=== PATIENT | male | born 1970 | race Caucasian/White ===

== ENCOUNTER 2024-04-21 17:08 | Emergency (ER) | payer SELFPAY ==
[2024-04-21] MEDS: Ibuprofen 600 MG Tab PO ONE (18:06)
== END 2024-04-21 20:05 | disposition home or self-care (01) ==
LOC: MW.ED 17:08
DX: J10.1 Influenza due to other identified influenza virus with other respiratory manifestations (principal); Z79.899 Other long term (current) drug therapy; Z75.8 Other problems related to medical facilities and other health care
CPT/HCPCS: 71046; 87428; 99284; A9270; 99283